=== PATIENT | male | born 1955 | race Caucasian/White ===

== ENCOUNTER 2018-03-15 13:10 | Emergency (ER) | payer OTHER ==
[~2018-03-15] VITALS: Ht 180.3 cm; Wt 63.5 kg
[2018-03-15] MEDS ORDERED: ZYPREXA10 MG ORAL (13:38)
[2018-03-15] MEDS ORDERED: GABAPENTIN100 MG ORAL (13:38)
[2018-03-15] MEDS ORDERED: IBUPROFEN600 MG ORAL (13:38)
[2018-03-15] MEDS ORDERED: TRILEPTAL600 MG PO (13:38)
[2018-03-15] MEDS ORDERED: TRAZODONE HCL100 MG ORAL (13:38)
[2018-03-15] MEDS ORDERED: MONTELUKAST SOD10 MG ORAL (13:38)
[2018-03-15] MEDS ORDERED: NORCO 5-325 TA1 EACH ORAL (13:38)
[2018-03-15] MEDS ORDERED: DOCUSATE SODIU250 MG ORAL (13:38)
[2018-03-15] MEDS ORDERED: FLUVOXAMINE MAL50 M1 PO (13:38)
[2018-03-15] MEDS ORDERED: BENZTROPINE ME0.5 MG PO (13:38)
[2018-03-15] MEDS ORDERED: FOLIC ACID1 MG ORAL (13:38)
[2018-03-15] MEDS ORDERED: RISPERDAL0.5 MG ORAL (13:38)
[2018-03-15] MEDS ORDERED: CATAPRES0.1 MG ORAL (13:38)
[2018-03-15] MEDS ORDERED: PROAIR HFA8.5 GM INH (13:38)
[2018-03-15] MEDS ORDERED: PAIN RELIEF500 M1 PO (13:38)
--- NOTE | 2018-03-15 14:11 | Emergency Room Report ---
History of Present Illness General Chief Complaint: General Complaint Source: Patient, Medical Record, EMS Present Illness HPI The patient is sent in for persistent tremor. This is involving his right hand. He claims it is been a recurrent problem. In the past he's been treated with Klonopin. He states that it's been worked up with a CAT scan in the past and she seen a neurologist for this. He can't tell me where the workup was done. He denies any headache, fever, increased weakness. No chest pain, nausea, vomiting, diarrhea, dysuria or extremity pain. H/O generalized muscle weakness which has not been identified. H/O schizophrenia and bipolar disorder. Denies SI or HI. Takes several antipsychotic meds and cogentin. Allergies: Coded Allergies: HALOPERIDOL (Verified Allergy, Unknown, 03/15/18) Patient History Past Medical History: see triage record, COPD, psych hx - schizophrenia and bipolar disorder Past Surgical History: other - femur fracture Social History: Denies: smoking Social History Narrative Retired auto accessories installer - born in [place] Reviewed Nursing Documentation: PMH: Agreed; PSxH: Agreed Nursing Documentation-PMH Past Medical History: No History, Except For Review of Systems All Other Systems: negative except mentioned in HPI Physical Exam Vital Signs Date Time Temp Pulse Resp B/P (MAP) Pulse Ox O2 Delivery O2 Flow Rate FiO2 03/15/18 13:00 98.1 98 20 112/83 94 Room Air 98.1 Sp02 EP Interpretation: reviewed, normal General Appearance: well appearing, no apparent distress, GCS 15 Head: normocephalic Eyes: bilateral eye normal inspection, bilateral eye PERRL, bilateral eye EOMI ENT: moist mucus membranes - edentulous Neck: supple Respiratory: lungs clear, normal breath sounds Cardiovascular #1: regular rate, rhythm Cardiovascular #2: 2+ radial (R) Gastrointestinal: normal inspection, normal bowel sounds, non tender, no mass, non-distended, scaphoid Musculoskeletal: back normal, normal range of motion Neurologic: alert, other - resting tremor R hand, oriented - X2 Psychiatric: mood/affect normal Skin: normal inspection, warm/dry Medical Decision Making Diagnostic Impression: Primary Impression: Tremor ER Course Patient presents with tremor of his right hand. Differential: Parkinson's, partial complex seizures, intention tremor, other type of tremor, electrolyte abnormality, medication reaction (EPS) amongst others. Patient will be evaluated CT scan of the head, EKG, chest x-ray and labs. We were unable to determine where prior workup was done. As tremor decreases with intention, consider Parkinson's. EKG without injury. CXR rotation. CT head chronic changes. Labs unremarkable. Discussed with Dr. Ho. Patient unchanged, with intermittent tremor. Patient stable for outpatient observation and treatment. Consider neurologic consultation as outpatient. Laboratory Tests Test 03/15/18 14:10 White Blood Count 6.2 K/UL (4.8-10.8) Red Blood Count 4.24 M/UL (4.70-6.10) L Hemoglobin 12.9 G/DL (14.2-18.0) L Hematocrit 38.0 % (42.0-52.0) L Mean Corpuscular Volume 90 FL (80-99) Mean Corpuscular Hemoglobin 30.4 PG (27.0-31.0) Mean Corpuscular Hemoglobin Concent 34.0 G/DL (32.0-36.0) Red Cell Distribution Width 10.3 % (11.6-14.8) L Platelet Count 166 K/UL (150-450) Mean Platelet Volume 6.4 FL (6.5-10.1) L Neutrophils (%) (Auto) 76.6 % (45.0-75.0) H Lymphocytes (%) (Auto) 15.1 % (20.0-45.0) L Monocytes (%) (Auto) 7.4 % (1.0-10.0) Eosinophils (%) (Auto) 0.5 % (0.0-3.0) Basophils (%) (Auto) 0.4 % (0.0-2.0) Urine Color Pale yellow Urine Appearance Clear Urine pH 7 (4.5-8.0) Urine Specific Nichols 1.010 (1.005-1.035) Urine Protein Negative (NEGATIVE) Urine Glucose (UA) Negative (NEGATIVE) Urine Ketones Negative (NEGATIVE) Urine Occult Blood 4+ (NEGATIVE) H Urine Nitrite Negative (NEGATIVE) Urine Bilirubin Negative (NEGATIVE) Urine Urobilinogen Normal MG/DL (0.0-1.0) Urine Leukocyte Esterase Negative (NEGATIVE) Urine RBC Tntc /HPF (0 - 0) H Urine WBC 0-2 /HPF (0 - 0) Urine Squamous Epithelial Cells None /LPF (NONE/OCC) Urine Amorphous Sediment Few /LPF (NONE) H Urine Bacteria Few /HPF (NONE) Sodium Level 134 MMOL/L (136-145) L Potassium Level 4.2 MMOL/L (3.5-5.1) Chloride Level 97 MMOL/L (98-107) L Carbon Dioxide Level 31 MMOL/L (21-32) Anion Gap 6 mmol/L (5-15) Blood Urea Nitrogen 17 mg/dL (7-18) Creatinine 0.9 MG/DL (0.55-1.30) Estimate Glomerular Filtration Rate > 60 mL/min (>60) Glucose Level 106 MG/DL (74-106) Calcium Level 9.1 MG/DL (8.5-10.1) Total Bilirubin 0.3 MG/DL (0.2-1.0) Aspartate Amino Transferase (AST) 39 U/L (15-37) H Alanine Aminotransferase (ALT) 94 U/L (12-78) H Alkaline Phosphatase 110 U/L (46-116) Total Creatine Kinase 50 U/L (26-308) Troponin I 0.004 ng/mL (0.000-0.056) Total Protein 7.4 G/DL (6.4-8.2) Albumin 3.8 G/DL (3.4-5.0) Globulin 3.6 g/dL Albumin/Globulin Ratio 1.1 (1.0-2.7) Urine Opiates Screen Negative (NEGATIVE) Urine Barbiturates Screen Negative (NEGATIVE) Phencyclidine (PCP) Screen Negative (NEGATIVE) Urine Amphetamines Screen Negative (NEGATIVE) Urine Benzodiazepines Screen Negative (NEGATIVE) Urine Cocaine Screen Negative (NEGATIVE) Urine Marijuana (THC) Screen Negative (NEGATIVE) EKG Diagnostic Results Rate: normal Rhythm: NSR ST Segments: no acute changes Rhythm Strip Diag. Results EP Interpretation: yes Rhythm: NSR, no PVC's, no ectopy Chest X-Ray Diagnostic Results Chest X-Ray Diagnostic Results : Chest X-Ray Ordered: Yes # of Views/Limited/Complete: 1 View Indication: Other EP Interpretation: Yes Interpretation: no consolidation, no effusion, no pneumothorax, other - rotation Impression: No acute disease Electronically Signed by: Electronically signed by Hugh Way MD CT/MRI/US Diagnostic Results CT/MRI/US Diagnostic Results : Imaging Test Ordered: head Impression chronic changes Last Vital Signs Date Time Temp Pulse Resp B/P (MAP) Pulse Ox O2 Delivery O2 Flow Rate FiO2 03/15/18 18:53 97.9 79 22 131/90 95 Room Air Status: unchanged Disposition: XFER SNF Condition: Stable Hugh Way M.D. March 15, 2018 14:11
[2018-03-15 14:46] LABS: BASOPHILS % (AUTO) 0.4 % (0.0-2.0); EOSINOPHILS % (AUTO) 0.5 % (0.0-3.0); HEMOGLOBIN 12.9 G/DL (14.2-18.0); LYMPHOCYTES % (AUTO) 15.1 % (20.0-45.0); MEAN CORPUSCULAR VOLUME 90 FL (80-99); MONOCYTES % (AUTO) 7.4 % (1.0-10.0); NEUTROPHILS % (AUTO) 76.6 % (45.0-75.0); PLATELET COUNT 166 K/UL (150-450); RED BLOOD COUNT 4.24 M/UL (4.70-6.10); RED CELL DISTRIBUTION WIDTH 10.3 % (11.6-14.8); WHITE BLOOD COUNT 6.2 K/UL (4.8-10.8)
[2018-03-15 14:50] LABS: APPEARANCE,URINE CLEAR; BILIRUBIN, URINE NEGATIVE (NEGATIVE); COLOR,URINE PALE YELLOW; GLUCOSE, URINE (UA) NEGATIVE (NEGATIVE); KETONES,URINE NEGATIVE (NEGATIVE); LEUKOCYTE ESTERASE ,URINE NEGATIVE (NEGATIVE); NITRITE,URINE NEGATIVE (NEGATIVE); PH,URINE 7 (4.5-8.0); PROTEIN,URINE NEGATIVE (NEGATIVE); UROBILINOGEN,URINE NORMAL MG/DL (0.0-1.0)
[2018-03-15 14:58] LABS: ANION GAP 6 mmol/L (5-15); BLOOD UREA NITROGEN 17 mg/dL (7-18); CALCIUM 9.1 MG/DL (8.5-10.1); CARBON DIOXIDE 31 MMOL/L (21-32); CHLORIDE 97 MMOL/L (98-107); CREATININE 0.9 MG/DL (0.55-1.30); POTASSIUM 4.2 MMOL/L (3.5-5.1); SODIUM 134 MMOL/L (136-145)
--- NOTE | 2018-03-15 15:02 | Diagnostic Imaging Report ---
Indication: Altered level of consciousness Technique: Contiguous 5 mm thick transaxial imaging of the head obtained in a Siemens Sensation [address] scanner. Soft tissue and bone windows generated. Automatic Exposure Control was utilized. Total Dose length Product (DLP): 1467.[address] Dose Index Volume (CTDIvol): 70.38 mGy Comparison: none Findings: There is mild prominence of the ventricles, basal cisterns, and cerebral sulci consistent with atrophy. Mild, nonspecific, white matter hypoattenuation is noted throughout the brain consistent with chronic small vessel disease. There is no midline shift, edema, acute hemorrhage, mass effect, or abnormal extra-axial fluid collections. Bones and extra osseous soft tissues are unremarkable. Impression: No acute intracranial bleed, mass effect or edema. Mild atrophy of the brain. Nonspecific white matter hypoattenuation probably due to chronic small vessel disease. [place] [facility] [place] [employer] and the scans are performed using dose optimization techniques as appropriate to a performed exam including Automatic Exposure control.
[2018-03-15 15:04] LABS: ALANINE AMINOTRANSFERASE 94 U/L (12-78); ALBUMIN 3.8 G/DL (3.4-5.0); ALBUMIN/GLOBULIN RATIO 1.1 (1.0-2.7); ALKALINE PHOSPHATASE 110 U/L (46-116); ASPARTATE AMINO TRANSFERASE 39 U/L (15-37); BILIRUBIN,TOTAL 0.3 MG/DL (0.2-1.0); CREATINE KINASE 50 U/L (26-308)
[2018-03-15 15:09] VITALS: BP 105/71
--- NOTE | 2018-03-15 15:16 | Diagnostic Imaging Report ---
Indication: Dyspnea Comparison: None A single view chest radiograph was obtained. Findings: Exam limited by rotation. No obvious infiltrate identified or evidence of pulmonary edema. The bones are osteopenic. IMPRESSION: Very limited study due to rotation
[2018-03-15 17:01] VITALS: BP 130/83
[2018-03-15 18:53] VITALS: BP 131/90
--- NOTE | 2018-03-17 22:30 | Cardiology Report ---
APPROVED REPORT EKG Measurement Heart [id number] Normal sinus rhythm Early repolarization Normal ECG
== END 2018-03-15 18:53 ==
LOC: EDBD 13:10 → EMR 14:00
DX: R25.1 Tremor, unspecified (principal); R41.82 Altered mental status, unspecified
CPT/HCPCS: 36415; 70450; 71045; 80053; 80307; 81003; 82550; 82962; 84484; 85025; 93005; 96374; 99284